=== PATIENT | male | born 1985 | race Caucasian/White ===

== ENCOUNTER 2022-02-08 17:11 | Inpatient (IN) | payer OTHER ==
[2022-02-08 17:54] VITALS: BMI 21.8
[2022-02-08] MEDS ORDERED: NICOTINE 10 MG CARTRIDGE (INHALER) IH PRN (18:08)
[2022-02-08] MEDS ORDERED: MAGNESIUM CITRATE 300 ML BOTTLE PO PRN ×2 (18:08→20:58)
[2022-02-08] MEDS ORDERED: BENZOCAINE/MENTHOL (CHLORASEPTIC ) LOZENGE MM PRN ×2 (18:08→20:58)
[2022-02-08] MEDS ORDERED: DICYCLOMINE HCL 10 MG CAPSULE PO PRN ×2 (18:08→20:58)
[2022-02-08] MEDS ORDERED: MAG HYDROX/AL HYDROX/SIMETH 30 ML UNIT-DOSE CUP PO PRN ×2 (18:08→20:58)
[2022-02-08] MEDS ORDERED: LOPERAMIDE HCL 2 MG CAPSULE PO PRN ×2 (18:08→20:58)
[2022-02-08] MEDS ORDERED: MAGNESIUM HYDROX 2400MG/30ML ORAL SUSPENSION 30 ML CUP PO PRN ×2 (18:08→20:58)
[2022-02-08] MEDS ORDERED: BISMUTH SUBSALICYLATE 524 MG/30 ML PO PRN ×2 (18:08→20:58)
[2022-02-08] MEDS ORDERED: METHOCARBAMOL 500 MG TABLET PO PRN ×2 (18:08→20:58)
[2022-02-08] MEDS ORDERED: ACETAMINOPHEN 325 MG TABLET (FP) PO PRN ×4 (18:08→20:58)
[2022-02-08] MEDS ORDERED: IBUPROFEN 400 MG TABLET (FP) PO PRN ×2 (18:08→20:58)
[2022-02-08] MEDS ORDERED: ONDANSETRON *ODT* 4 MG TABLET SL PRN ×2 (18:08→20:58)
[2022-02-08] MEDS ORDERED: NALOXONE HCL 0.4 MG/ML VIAL IVPUSH PRN (18:15)
[2022-02-08] MEDS ORDERED: NALOXONE HCL 0.4 MG/ML VIAL IVPUSH ONE (18:15)
[2022-02-08] MEDS ORDERED: PRENATAL VITAMINS W/ FOLIC ACID TABLET (FP) PO SCH (18:15)
[2022-02-08] MEDS ORDERED: MELATONIN 5 MG TABLETS PO PRN (20:58)
[2022-02-08] MEDS: NICOTINE 14 MG/24 HOURS TOPICAL PATCH TD SCH (21:56)
[2022-02-08] MEDS ORDERED: MELATONIN 5 MG TABLETS PO SCH (22:00)
[2022-02-08] MEDS ORDERED: hydrOXYzine PAMOATE 25 MG CAPSULE (FP) PO SCH (22:00)
[2022-02-08] MEDS ORDERED: THIAMINE HCL 100 MG TABLET (FP) PO SCH (22:00)
[2022-02-08] MEDS: THIAMINE HCL 100 MG TABLET (FP) PO SCH (22:01)
[2022-02-09] MEDS ORDERED: diazePAM 5 MG TABLET PO PRN (00:05)
[2022-02-09] MEDS ORDERED: methaDONE HCL 10 MG TABLET ONE (09:15)
[2022-02-09] MEDS ORDERED: methaDONE HCL 40 MG DISPERSABLE TABLET ONE (09:16)
[2022-02-09] MEDS ORDERED: methaDONE HCL 10 MG TABLET PO ONE (10:00)
[2022-02-09] MEDS: PRENATAL VITAMINS W/ FOLIC ACID TABLET (FP) PO SCH (10:02)
[2022-02-09] MEDS: NICOTINE 14 MG/24 HOURS TOPICAL PATCH TD SCH (10:04)
[2022-02-09] MEDS: diazePAM 5 MG TABLET PO SCH ×3 (10:05→22:20)
[2022-02-09 10:22] LABS: HEMATOCRIT 36.3 % (35.4-49); HEMOGLOBIN 12.5 GM/dL (11.7-16.9); MCH 29.7 pg (25.7-33.7); MCHC 34.4 g/dl (32.0-35.9); MEAN CELL VOLUME 86.2 fl (80-96); MEAN PLT VOLUME 7.9 fl (7.5-11.1); PLATELET COUNT 218 10^3/uL (134-434); RBC 4.22 M/mm3 (4.00-5.60); RDW 14.4 % (11.9-15.9); WHITE BLOOD COUNT 6.3 K/mm3 (4.0-10.0)
[2022-02-09 10:26] LABS: ALBUMIN 3.2 g/dl (3.4-5.0); BLOOD UREA NITROGEN 22.6 mg/dL (7-18); CALCIUM 8.4 mg/dL (8.5-10.1)
[2022-02-09 10:28] LABS: CREATININE 0.7 mg/dL (0.55-1.3)
[2022-02-09 10:31] LABS: BILIRUBIN,TOTAL 0.3 mg/dL (0.2-1)
[2022-02-09] MEDS: THIAMINE HCL 100 MG TABLET (FP) PO SCH (22:19)
[2022-02-10] MEDS ORDERED: diazePAM 5 MG TABLET PO PRN (00:01)
[2022-02-10] MEDS ORDERED: methaDONE HCL 40 MG DISPERSABLE TABLET ONE ×2 (04:18→08:52)
[2022-02-10] MEDS ORDERED: methaDONE HCL 10 MG TABLET ONE ×2 (04:18→08:51)
[2022-02-10] MEDS ORDERED: methaDONE HCL 10 MG TABLET PO SCH ×2 (06:00→10:00)
[2022-02-10] MEDS: diazePAM 5 MG TABLET PO SCH ×3 (06:19→22:18)
[2022-02-10] MEDS: PRENATAL VITAMINS W/ FOLIC ACID TABLET (FP) PO SCH (10:17)
[2022-02-10] MEDS: NICOTINE 14 MG/24 HOURS TOPICAL PATCH TD SCH (10:18)
[2022-02-10] MEDS: THIAMINE HCL 100 MG TABLET (FP) PO SCH (22:18)
[2022-02-11] MEDS: diazePAM 5 MG TABLET PO SCH ×2 (06:46→17:51)
[2022-02-11] MEDS ORDERED: methaDONE HCL 10 MG TABLET ONE (08:51)
[2022-02-11] MEDS ORDERED: methaDONE HCL 40 MG DISPERSABLE TABLET ONE (08:52)
[2022-02-11] MEDS: PRENATAL VITAMINS W/ FOLIC ACID TABLET (FP) PO SCH (10:21)
[2022-02-11] MEDS: NICOTINE 14 MG/24 HOURS TOPICAL PATCH TD SCH (10:22)
[2022-02-11] MEDS: THIAMINE HCL 100 MG TABLET (FP) PO SCH (22:21)
[2022-02-12] MEDS ORDERED: diazePAM 5 MG TABLET PO ONE (06:00)
[2022-02-12 09:31] VITALS: BP 124/67; PULSE 61; TEMP 97.8
[2022-02-12] MEDS ORDERED: methaDONE HCL 10 MG TABLET ONE (09:35)
[2022-02-12] MEDS ORDERED: methaDONE HCL 40 MG DISPERSABLE TABLET ONE (09:35)
[2022-02-12] MEDS: PRENATAL VITAMINS W/ FOLIC ACID TABLET (FP) PO SCH (09:54)
[2022-02-12] MEDS: NICOTINE 14 MG/24 HOURS TOPICAL PATCH TD SCH (09:56)
== END 2022-02-12 10:13 | disposition other institution (70) | DRG 773 ==
LOC: YASAS 17:11 → UNDOADMIN 20:28 → Y6N 20:28
PROVIDERS: ADMIT Allergy & Immunology; ATTEND Surgery
PROC: HZ2ZZZZ Detoxification Services for Substance Abuse Treatment (ICD-10-PCS; principal; 2022-02-08)
DX: F13.230 Sedative, hypnotic or anxiolytic dependence with withdrawal, uncomplicated (principal); F11.20 Opioid dependence, uncomplicated; F14.20 Cocaine dependence, uncomplicated; F17.210 Nicotine dependence, cigarettes, uncomplicated; F19.280 Other psychoactive substance dependence with psychoactive substance-induced anxiety disorder; F41.9 Anxiety disorder, unspecified
CPT/HCPCS: 36415; 80053; 85027; 86780; 87811; 93005; 93010; C9803-CS; U0003; U0005

== ENCOUNTER 2022-06-13 12:02 | Inpatient (IN) | payer OTHER ==
[2022-06-13 12:33] VITALS: BMI 21.5
[2022-06-13] MEDS ORDERED: NICOTINE 10 MG CARTRIDGE (INHALER) IH PRN (13:05)
[2022-06-13] MEDS ORDERED: LOPERAMIDE HCL 2 MG CAPSULE PO PRN (13:05)
[2022-06-13] MEDS ORDERED: MAG HYDROX/AL HYDROX/SIMETH 30 ML UNIT-DOSE CUP PO PRN (13:05)
[2022-06-13] MEDS ORDERED: P-EPHED 60MG/TRIPROLIDI 2.5MG TABLET PO PRN (13:05)
[2022-06-13] MEDS ORDERED: guaiFENesin 200 MG/10 ML 10 ML UNIT-DOSE CUPS PO PRN (13:05)
[2022-06-13] MEDS ORDERED: IBUPROFEN 400 MG TABLET (FP) PO PRN (13:05)
[2022-06-13] MEDS ORDERED: NALOXONE HCL (KLOXXADO) 8 MG SPRAY NS PRN (13:05)
[2022-06-13] MEDS ORDERED: MAGNESIUM CITRATE 300 ML BOTTLE PO PRN (13:05)
[2022-06-13] MEDS ORDERED: ACETAMINOPHEN 325 MG TABLET (FP) PO PRN (13:05)
[2022-06-13] MEDS ORDERED: MAGNESIUM HYDROX 2400MG/30ML ORAL SUSPENSION 30 ML CUP PO PRN (13:05)
[2022-06-13 17:23] LABS: CALCIUM 8.3 mg/dL (8.5-10.1)
[2022-06-13 17:24] LABS: ALBUMIN 3.1 g/dl (3.4-5.0); BLOOD UREA NITROGEN 19.7 mg/dL (7-18); HEMATOCRIT 34.5 % (35.4-49); HEMOGLOBIN 11.4 GM/dL (11.7-16.9); MCH 28.7 pg (25.7-33.7); MEAN PLT VOLUME 8.1 fl (7.5-11.1); PLATELET COUNT 250 10^3/uL (134-434); RBC 3.97 M/mm3 (4.00-5.60); RDW 15.3 % (11.9-15.9); WHITE BLOOD COUNT 6.3 K/mm3 (4.0-10.0)
[2022-06-13 17:27] LABS: CREATININE 0.8 mg/dL (0.55-1.3)
[2022-06-13 17:29] LABS: BILIRUBIN,TOTAL 0.3 mg/dL (0.2-1); TOT PROT 6.3 g/dl (6.4-8.2)
[2022-06-13 17:55] LABS: SYPHILIS W/ RPR CONF NON-REACTIVE (NONREACTIVE)
[2022-06-13] MEDS ORDERED: hydrOXYzine PAMOATE 25 MG CAPSULE (FP) PO PRN (20:08)
[2022-06-13] MEDS: NICOTINE 7 MG/24 HOURS TOPICAL PATCH TD SCH (21:40)
[2022-06-13] MEDS: PRENATAL VITAMINS W/ FOLIC ACID TABLET (FP) PO SCH (21:41)
[2022-06-13] MEDS: NICOTINE 14 MG/24 HOURS TOPICAL PATCH TD SCH (21:41)
[2022-06-13] MEDS: MELATONIN 5 MG TABLETS PO SCH (21:41)
[2022-06-13] MEDS: THIAMINE HCL 100 MG TABLET (FP) PO SCH (21:41)
[2022-06-13] MEDS: hydrOXYzine PAMOATE 25 MG CAPSULE (FP) PO SCH (21:42)
[2022-06-14] MEDS ORDERED: methaDONE HCL 40 MG DISPERSABLE TABLET PO SCH (06:00)
[2022-06-14] MEDS: NICOTINE 14 MG/24 HOURS TOPICAL PATCH TD SCH (11:24)
[2022-06-14] MEDS: NICOTINE 7 MG/24 HOURS TOPICAL PATCH TD SCH (11:24)
[2022-06-14] MEDS: PRENATAL VITAMINS W/ FOLIC ACID TABLET (FP) PO SCH (11:24)
[2022-06-14 11:36] LABS: EPI CELLS 7 /uL (0-25.1); HYALINE CASTS 0 /uL (0-3.1); URINE APPEARANCE CLEAR; URINE BACTERIA 102 /uL (0-1359); URINE BILIRUBIN NEGATIVE (NEGATIVE); URINE COLOR YELLOW; URINE GLUCOSE (UA) NEGATIVE (NEGATIVE); URINE KETONE NEGATIVE (NEGATIVE); URINE LEUK ESTERASE NEGATIVE (NEGATIVE); URINE NITRITE NEGATIVE (NEGATIVE); URINE PROTEIN NEGATIVE (NEGATIVE); URINE RBC 62 /uL (0-23.9); URINE WBC 3 /uL (0-25.8)
[2022-06-14] MEDS: THIAMINE HCL 100 MG TABLET (FP) PO SCH (23:32)
[2022-06-14] MEDS: MELATONIN 5 MG TABLETS PO SCH (23:32)
[2022-06-15] MEDS: NICOTINE 7 MG/24 HOURS TOPICAL PATCH TD SCH (09:59)
[2022-06-15] MEDS: NICOTINE 14 MG/24 HOURS TOPICAL PATCH TD SCH (09:59)
[2022-06-15] MEDS: PRENATAL VITAMINS W/ FOLIC ACID TABLET (FP) PO SCH (09:59)
[2022-06-15] MEDS: MELATONIN 5 MG TABLETS PO SCH (21:13)
[2022-06-15] MEDS: THIAMINE HCL 100 MG TABLET (FP) PO SCH (21:13)
[2022-06-16] MEDS: PRENATAL VITAMINS W/ FOLIC ACID TABLET (FP) PO SCH (10:22)
[2022-06-16] MEDS: NICOTINE 14 MG/24 HOURS TOPICAL PATCH TD SCH (10:22)
[2022-06-16] MEDS: NICOTINE 7 MG/24 HOURS TOPICAL PATCH TD SCH (10:22)
[2022-06-16] MEDS: MELATONIN 5 MG TABLETS PO SCH (22:52)
[2022-06-16] MEDS: THIAMINE HCL 100 MG TABLET (FP) PO SCH (22:52)
[2022-06-17] MEDS: NICOTINE 14 MG/24 HOURS TOPICAL PATCH TD SCH (10:10)
[2022-06-17] MEDS: PRENATAL VITAMINS W/ FOLIC ACID TABLET (FP) PO SCH (10:10)
[2022-06-17] MEDS: NICOTINE 7 MG/24 HOURS TOPICAL PATCH TD SCH (10:10)
[2022-06-17] MEDS: MELATONIN 5 MG TABLETS PO SCH (21:36)
[2022-06-17] MEDS: THIAMINE HCL 100 MG TABLET (FP) PO SCH (21:36)
[2022-06-18] MEDS: NICOTINE 7 MG/24 HOURS TOPICAL PATCH TD SCH (09:57)
[2022-06-18] MEDS: PRENATAL VITAMINS W/ FOLIC ACID TABLET (FP) PO SCH (09:57)
[2022-06-18] MEDS: NICOTINE 14 MG/24 HOURS TOPICAL PATCH TD SCH (11:31)
[2022-06-18] MEDS: THIAMINE HCL 100 MG TABLET (FP) PO SCH (21:47)
[2022-06-18] MEDS: MELATONIN 5 MG TABLETS PO SCH (21:47)
[2022-06-19] MEDS: NICOTINE 7 MG/24 HOURS TOPICAL PATCH TD SCH (12:45)
[2022-06-19] MEDS: PRENATAL VITAMINS W/ FOLIC ACID TABLET (FP) PO SCH (12:46)
[2022-06-19] MEDS: NICOTINE 14 MG/24 HOURS TOPICAL PATCH TD SCH (12:46)
[2022-06-19] MEDS: MELATONIN 5 MG TABLETS PO SCH (22:50)
[2022-06-19] MEDS: THIAMINE HCL 100 MG TABLET (FP) PO SCH (22:50)
[2022-06-20] MEDS: PRENATAL VITAMINS W/ FOLIC ACID TABLET (FP) PO SCH (09:43)
[2022-06-20] MEDS: NICOTINE 7 MG/24 HOURS TOPICAL PATCH TD SCH (09:44)
[2022-06-20] MEDS: NICOTINE 14 MG/24 HOURS TOPICAL PATCH TD SCH (09:44)
[2022-06-20] MEDS: THIAMINE HCL 100 MG TABLET (FP) PO SCH (21:38)
[2022-06-20] MEDS: MELATONIN 5 MG TABLETS PO SCH (21:38)
[2022-06-21 06:58] VITALS: RESP 18
[2022-06-21] MEDS: PRENATAL VITAMINS W/ FOLIC ACID TABLET (FP) PO SCH (11:29)
[2022-06-21] MEDS: NICOTINE 7 MG/24 HOURS TOPICAL PATCH TD SCH (11:29)
[2022-06-21] MEDS: NICOTINE 14 MG/24 HOURS TOPICAL PATCH TD SCH (11:29)
[2022-06-21] MEDS: MELATONIN 5 MG TABLETS PO SCH (23:08)
[2022-06-21] MEDS: THIAMINE HCL 100 MG TABLET (FP) PO SCH (23:08)
[2022-06-22] MEDS: PRENATAL VITAMINS W/ FOLIC ACID TABLET (FP) PO SCH (10:12)
[2022-06-22] MEDS: MELATONIN 5 MG TABLETS PO SCH (23:06)
[2022-06-22] MEDS: THIAMINE HCL 100 MG TABLET (FP) PO SCH (23:06)
[2022-06-23] MEDS: PRENATAL VITAMINS W/ FOLIC ACID TABLET (FP) PO SCH (10:35)
[2022-06-23] MEDS: THIAMINE HCL 100 MG TABLET (FP) PO SCH (21:35)
[2022-06-23] MEDS: MELATONIN 5 MG TABLETS PO SCH (21:35)
[2022-06-24] MEDS: PRENATAL VITAMINS W/ FOLIC ACID TABLET (FP) PO SCH (10:04)
[2022-06-25] MEDS: THIAMINE HCL 100 MG TABLET (FP) PO SCH ×2 (01:24→21:48)
[2022-06-25] MEDS: MELATONIN 5 MG TABLETS PO SCH ×2 (01:24→21:48)
[2022-06-25] MEDS: PRENATAL VITAMINS W/ FOLIC ACID TABLET (FP) PO SCH (10:10)
[2022-06-26] MEDS: PRENATAL VITAMINS W/ FOLIC ACID TABLET (FP) PO SCH (10:25)
[2022-06-26] MEDS: THIAMINE HCL 100 MG TABLET (FP) PO SCH (21:40)
[2022-06-26] MEDS: MELATONIN 5 MG TABLETS PO SCH (21:40)
[2022-06-27] MEDS: PRENATAL VITAMINS W/ FOLIC ACID TABLET (FP) PO SCH (10:27)
[2022-06-27] MEDS: MELATONIN 5 MG TABLETS PO SCH (21:38)
[2022-06-27] MEDS: THIAMINE HCL 100 MG TABLET (FP) PO SCH (21:38)
[2022-06-28] MEDS: PRENATAL VITAMINS W/ FOLIC ACID TABLET (FP) PO SCH (12:21)
[2022-06-28] MEDS: THIAMINE HCL 100 MG TABLET (FP) PO SCH (22:36)
[2022-06-28] MEDS: MELATONIN 5 MG TABLETS PO SCH (22:36)
[2022-06-29] MEDS: PRENATAL VITAMINS W/ FOLIC ACID TABLET (FP) PO SCH (10:28)
[2022-06-29] MEDS: FERROUS SO4 325 MG TABLET (FP) PO SCH (10:42)
[2022-06-29] MEDS: TAMSULOSIN HCL 0.4 MG CAP PO SCH (10:42)
[2022-06-29] MEDS: THIAMINE HCL 100 MG TABLET (FP) PO SCH (22:07)
[2022-06-29] MEDS: MELATONIN 5 MG TABLETS PO SCH (22:07)
[2022-06-30] MEDS: FERROUS SO4 325 MG TABLET (FP) PO SCH (07:05)
[2022-06-30] MEDS ORDERED: TAMSULOSIN HCL 0.4 MG CAP PO SCH (08:30)
[2022-06-30] MEDS: PRENATAL VITAMINS W/ FOLIC ACID TABLET (FP) PO SCH (10:50)
[2022-06-30] MEDS: TAMSULOSIN HCL 0.4 MG CAP PO SCH (10:50)
[2022-06-30] MEDS: THIAMINE HCL 100 MG TABLET (FP) PO SCH (21:44)
[2022-06-30] MEDS: MELATONIN 5 MG TABLETS PO SCH (21:44)
[2022-07-01] MEDS: FERROUS SO4 325 MG TABLET (FP) PO SCH (07:02)
[2022-07-01] MEDS: PRENATAL VITAMINS W/ FOLIC ACID TABLET (FP) PO SCH (10:38)
[2022-07-01] MEDS: TAMSULOSIN HCL 0.4 MG CAP PO SCH (10:39)
[2022-07-01] MEDS: THIAMINE HCL 100 MG TABLET (FP) PO SCH (23:00)
[2022-07-01] MEDS: MELATONIN 5 MG TABLETS PO SCH (23:00)
[2022-07-02] MEDS: FERROUS SO4 325 MG TABLET (FP) PO SCH (07:04)
[2022-07-02] MEDS: TAMSULOSIN HCL 0.4 MG CAP PO SCH (10:54)
[2022-07-02] MEDS: PRENATAL VITAMINS W/ FOLIC ACID TABLET (FP) PO SCH (10:54)
[2022-07-02] MEDS: THIAMINE HCL 100 MG TABLET (FP) PO SCH (22:33)
[2022-07-02] MEDS: MELATONIN 5 MG TABLETS PO SCH (22:33)
[2022-07-03] MEDS: FERROUS SO4 325 MG TABLET (FP) PO SCH (07:02)
[2022-07-03] MEDS: TAMSULOSIN HCL 0.4 MG CAP PO SCH (10:16)
[2022-07-03] MEDS: PRENATAL VITAMINS W/ FOLIC ACID TABLET (FP) PO SCH (10:16)
[2022-07-03] MEDS: THIAMINE HCL 100 MG TABLET (FP) PO SCH (22:03)
[2022-07-03] MEDS: MELATONIN 5 MG TABLETS PO SCH (22:03)
[2022-07-04] MEDS: FERROUS SO4 325 MG TABLET (FP) PO SCH (07:03)
[2022-07-04] MEDS: TAMSULOSIN HCL 0.4 MG CAP PO SCH (08:28)
[2022-07-04] MEDS: PRENATAL VITAMINS W/ FOLIC ACID TABLET (FP) PO SCH (10:25)
[2022-07-04] MEDS: THIAMINE HCL 100 MG TABLET (FP) PO SCH (22:26)
[2022-07-04] MEDS: MELATONIN 5 MG TABLETS PO SCH (22:26)
[2022-07-05] MEDS: FERROUS SO4 325 MG TABLET (FP) PO SCH (07:00)
[2022-07-05] MEDS: TAMSULOSIN HCL 0.4 MG CAP PO SCH (09:55)
[2022-07-05] MEDS: PRENATAL VITAMINS W/ FOLIC ACID TABLET (FP) PO SCH (09:55)
[2022-07-05] MEDS: MELATONIN 5 MG TABLETS PO SCH (22:41)
[2022-07-05] MEDS: THIAMINE HCL 100 MG TABLET (FP) PO SCH (22:41)
[2022-07-06] MEDS: FERROUS SO4 325 MG TABLET (FP) PO SCH (07:05)
[2022-07-06] MEDS: PRENATAL VITAMINS W/ FOLIC ACID TABLET (FP) PO SCH (10:35)
[2022-07-06] MEDS: TAMSULOSIN HCL 0.4 MG CAP PO SCH (10:35)
[2022-07-06] MEDS: MELATONIN 5 MG TABLETS PO SCH (21:45)
[2022-07-06] MEDS: THIAMINE HCL 100 MG TABLET (FP) PO SCH (21:45)
[2022-07-07] MEDS: FERROUS SO4 325 MG TABLET (FP) PO SCH (07:01)
[2022-07-07] MEDS: PRENATAL VITAMINS W/ FOLIC ACID TABLET (FP) PO SCH (09:54)
[2022-07-07] MEDS: TAMSULOSIN HCL 0.4 MG CAP PO SCH (09:54)
[2022-07-07] MEDS: THIAMINE HCL 100 MG TABLET (FP) PO SCH (22:29)
[2022-07-07] MEDS: MELATONIN 5 MG TABLETS PO SCH (22:29)
[2022-07-08] MEDS: FERROUS SO4 325 MG TABLET (FP) PO SCH (07:04)
[2022-07-08] MEDS: TAMSULOSIN HCL 0.4 MG CAP PO SCH (08:41)
[2022-07-08] MEDS: PRENATAL VITAMINS W/ FOLIC ACID TABLET (FP) PO SCH (09:39)
[2022-07-08] MEDS: CARBAMIDE PEROXIDE 6.5% OTIC 15 ML BOTTLE AU SCH ×2 (11:39→21:50)
[2022-07-08] MEDS: BACLOFEN 10 MG TABLET (FP) PO SCH ×2 (14:32→21:52)
[2022-07-08] MEDS: THIAMINE HCL 100 MG TABLET (FP) PO SCH (21:52)
[2022-07-08] MEDS: MELATONIN 5 MG TABLETS PO SCH (21:52)
[2022-07-09] MEDS: BACLOFEN 10 MG TABLET (FP) PO SCH ×3 (06:15→21:35)
[2022-07-09] MEDS: FERROUS SO4 325 MG TABLET (FP) PO SCH (08:24)
[2022-07-09] MEDS: CARBAMIDE PEROXIDE 6.5% OTIC 15 ML BOTTLE AU SCH ×2 (10:21→21:36)
[2022-07-09] MEDS: TAMSULOSIN HCL 0.4 MG CAP PO SCH (10:21)
[2022-07-09] MEDS: PRENATAL VITAMINS W/ FOLIC ACID TABLET (FP) PO SCH (10:22)
[2022-07-09] MEDS: MELATONIN 5 MG TABLETS PO SCH (21:38)
[2022-07-09] MEDS: THIAMINE HCL 100 MG TABLET (FP) PO SCH (21:38)
[2022-07-10] MEDS: BACLOFEN 10 MG TABLET (FP) PO SCH ×3 (06:08→22:04)
[2022-07-10] MEDS: FERROUS SO4 325 MG TABLET (FP) PO SCH (07:10)
[2022-07-10] MEDS: PRENATAL VITAMINS W/ FOLIC ACID TABLET (FP) PO SCH (09:55)
[2022-07-10] MEDS: TAMSULOSIN HCL 0.4 MG CAP PO SCH (09:56)
[2022-07-10] MEDS: CARBAMIDE PEROXIDE 6.5% OTIC 15 ML BOTTLE AU SCH ×2 (09:56→22:04)
[2022-07-10] MEDS: THIAMINE HCL 100 MG TABLET (FP) PO SCH (22:04)
[2022-07-10] MEDS: MELATONIN 5 MG TABLETS PO SCH (22:04)
[2022-07-11] MEDS: BACLOFEN 10 MG TABLET (FP) PO SCH (06:16)
[2022-07-11] MEDS: PRENATAL VITAMINS W/ FOLIC ACID TABLET (FP) PO SCH (09:22)
[2022-07-11] MEDS: FERROUS SO4 325 MG TABLET (FP) PO SCH (09:22)
[2022-07-11] MEDS: TAMSULOSIN HCL 0.4 MG CAP PO SCH (09:22)
[2022-07-11] MEDS: CARBAMIDE PEROXIDE 6.5% OTIC 15 ML BOTTLE AU SCH ×2 (09:23→22:06)
[2022-07-11] MEDS ORDERED: BACLOFEN 10 MG TABLET (FP) PO PRN (12:01)
[2022-07-11] MEDS: MELATONIN 5 MG TABLETS PO SCH (22:07)
[2022-07-11] MEDS: THIAMINE HCL 100 MG TABLET (FP) PO SCH (22:07)
[2022-07-12] MEDS: FERROUS SO4 325 MG TABLET (FP) PO SCH (07:05)
[2022-07-12] MEDS: TAMSULOSIN HCL 0.4 MG CAP PO SCH (09:02)
[2022-07-12] MEDS: CARBAMIDE PEROXIDE 6.5% OTIC 15 ML BOTTLE AU SCH ×2 (09:02→22:07)
[2022-07-12] MEDS: PRENATAL VITAMINS W/ FOLIC ACID TABLET (FP) PO SCH (09:02)
[2022-07-12] MEDS: MELATONIN 5 MG TABLETS PO SCH (22:07)
[2022-07-12] MEDS: THIAMINE HCL 100 MG TABLET (FP) PO SCH (22:07)
[2022-07-13 06:59] VITALS: BP 130/73; PULSE 67; TEMP 97.3
[2022-07-13] MEDS: FERROUS SO4 325 MG TABLET (FP) PO SCH (07:04)
== END 2022-07-13 08:52 | disposition home or self-care (01) | DRG 772 ==
LOC: YASAS 12:02 → Y3W 18:16
PROVIDERS: ADMIT Allergy & Immunology; ATTEND Psychiatry & Neurology Pain Medicine
PROC: HZ42ZZZ Group Counseling for Substance Abuse Treatment, Cognitive-Behavioral (ICD-10-PCS; principal; 2022-06-13)
DX: F11.20 Opioid dependence, uncomplicated (principal); F14.20 Cocaine dependence, uncomplicated; F13.20 Sedative, hypnotic or anxiolytic dependence, uncomplicated; F17.210 Nicotine dependence, cigarettes, uncomplicated; F19.280 Other psychoactive substance dependence with psychoactive substance-induced anxiety disorder; F19.24 Other psychoactive substance dependence with psychoactive substance-induced mood disorder; H61.23 Impacted cerumen, bilateral; R35.0 Frequency of micturition; R31.29 Other microscopic hematuria; Z86.59 Personal history of other mental and behavioral disorders; Z59.00 Homelessness unspecified
CPT/HCPCS: 36415; 80053; 81003; 82962; 85027; 86780; 86803; 87522; C9803-CS; J0475; U0003; U0005